=== PATIENT | female | born 1990 | race Caucasian/White ===

== ENCOUNTER 2016-08-29 07:56 | Emergency (ER) | payer OTHER ==
[2016-08-29 09:19] LABS: Urine Bacteria Absent (Absent); Urine Bilirubin Negative (Negative); Urine Glucose Negative (Negative); Urine Nitrite Negative (Negative)
[2016-08-29 09:50] LABS: Hematocrit 39 % (35-47); Hemoglobin 12.6 g/dl (12.0-16.0); Mean Corpuscular HGB Conc 32 g/dl (31-36); Mean Corpuscular Hemoglobin 27 pg (27-31); Mean Corpuscular Volume 83 fL (80-97); Mean Platelet Volume 9 um3 (7.4-10.4); Red Blood Count 4.73 10^6/ul (4.0-5.4); Red Cell Distribution Width 16 % (10.5-15); White Blood Count 7.8 10^3/ul (3.5-10.8)
[2016-08-29 10:10] LABS: ALT 15 U/L (7-52); AST 15 U/L (13-39); Albumin 4.3 g/dL (3.2-5.2); Alkaline Phosphatase 72 U/L (34-104); Anion Gap 8 mmol/L (2-11); BUN/Creatinine Ratio 20.5 (8-20); Blood Urea Nitrogen 15 mg/dL (6-24); C Reactive Protein 5.71 mg/L (< 5.00); CO2 Carbon Dioxide 20 mmol/L (22-32); Calcium 9.2 mg/dL (8.6-10.3); Chloride 108 mmol/L (101-111); EGFR African American 124.9 (>60); EGFR Non-African American 97.1 (>60); Globulin 2.6 g/dL (2-4); Glucose 86 mg/dL (70-100); Lipase 18 U/L (11.0-82.0); Sodium 136 mmol/L (133-145); Total Protein 6.9 g/dL (6.4-8.9)
--- NOTE | 2016-08-29 11:43 | RAD ---
Indication: 2 months LEFT adnexal region pain. Comparison: No relevant prior exams available on the [facility] PACS. Technique: Transvaginal pelvic ultrasound. Report: 8.8 x 4.3 x 5.1 cm anteverted uterus is heterogeneous in echotexture which may reflect presence of small uterine fibroids. No discrete measurable uterine lesions evident. 4.2 mm endometrium. Trace fluid noted in the endometrial cavity and endocervical canal. Trace free fluid noted in the cul-de-sac. 4.5 x 3.1 x 3.0 cm RIGHT ovary with documented vascular flow is remarkable for a unilocular 3.0 x 2.3 x 2.5 cm cyst without complex features consistent with a follicular cyst. 3.3 x 2.5 x 2.6 cm LEFT ovary with documented vascular flow is remarkable for small follicles only. No extra ovarian adnexal region lesions evident. IMPRESSION: 1. Heterogeneous echotexture of the uterus which may reflect small fibroids. No abnormal cystic spaces evident to favor adenomyosis. 2. Normal thickness endometrium with small volume of fluid in the endometrial cavity and endocervical canal. 3. Small follicular cyst of the RIGHT ovary.
[2016-08-29 12:33] VITALS: BP 104/72
--- NOTE | 2016-09-01 07:16 | ED ---
hector Hall Timothy, scribed for Tai Ray MD on 08/29/16 at 0848 . Abdominal Pain/Female - HPI Summary HPI Summary: Lluvia Gunn is a 26 yo female presenting to [facility] with 7/10 LLQ abd pain since 08/27/16. She has not had her menstrual period in 2 months and has a Hx of possible ectopic and polycystic ovarian disease. She stsates she is feeling lethargic, and is nauseous without vomiting. She stsates that she has taken multiple tests, all negative. She denies any vaginal bleeding or discharge, since a period of spotting July 24, her period usually ends on the of the month. She denies any sweats or chills, and states she might have lowgrade, subjective fever at night. She is sexually active, but denies new partners. She has had an appendectomy. Her MHx includes migraine, GERD, peptic ulcer, placental separation at 15 weeks this , ectopic , possible polycystic ovarian disease, arthritis right knee, hay fever, PTSD, depression, anxiety, tobacco use. Her [facility] REMOVER varies between Dr. Cruz and Dr. Roblero. - History of Current Complaint Chief Complaint: EDAbdPain Stated Complaint: PELVIC PAIN Time Seen by Provider: 08/29/16 08:43 Hx Obtained From: Patient Hx Last Menstrual Period: 2 months ago Onset/Duration: Gradual Onset, Lasting Days, Still Present Timing: Constant Severity Initially: Moderate Severity Currently: Moderate Pain Intensity: 7 Pain Scale Used: 0-10 Numeric Location: Discrete At: LLQ Radiates: No Associated Signs and Symptoms: Positive: Fever - lowgrade, subjective, Nausea. Negative: Urinary Symptoms Allergies/Adverse Reactions: Allergies Allergy/AdvReac Type Severity Reaction Status Date / Time contrast dye Allergy Intermediate hives, Uncoded 06/26/15 19:48 rash, sneezing PMH/Surg Hx/FS Hx/Imm Hx Cardiovascular History: Denies: Other Cardiovascular Problems/Disorders GI History: Reports: Hx Gastroesophageal Reflux Disease, Hx Ulcer Denies: Other GI Disorders Musculoskeletal History: Reports: Hx Arthritis - RIGHT KNEE Sensory History: Reports: Hx Contacts or Glasses - CONTACTS Denies: Hx Hearing Aid Opthamlomology History: Reports: Hx Contacts or Glasses - CONTACTS Neurological History: Reports: Hx Headaches - 2-3 X PER WEEK, Hx Migraine - INFREQUENT Psychiatric History: Reports: Hx Anxiety, Hx Depression, Hx Post Traumatic Stress Disorder Denies: Hx Eating Disorder, Hx of Violent Episodes Against Others - Surgical History Surgery Procedure, Year, and Place: RIGHT KNEE X2, 2009, 2011, [place] Hx Anesthesia Reactions: No Infectious Disease History: Denies: Traveled Outside the [place] in Last 30 Days - Family History Known Family History: Positive: Hypertension, Diabetes, Other - anxiety, depression, stroke Negative: Cardiac Disease - Social History Alcohol Use: Occasionally Substance Use Type: Reports: None Smoking Status (MU): Light Every Day Tobacco Smoker Type: Cigarettes Amount Used/How Often: 1/2 PPD Length of Time of Smoking/Using Tobacco: 9 years Have You Smoked in the Last Year: Yes Review of Systems Positive: Fever - lowgrade, subjective. Negative: Chills Eyes: Negative Negative: Erythema ENT: Negative Negative: Sore Throat Cardiovascular: Negative Negative: Palpitations, Chest Pain Respiratory: Negative Negative: Shortness Of Breath, Cough Positive: Abdominal Pain. Negative: Vomiting, Nausea Genitourinary: Negative Negative: dysuria, hematuria Musculoskeletal: Negative Negative: Edema - legs Skin: Negative Negative: Rash Neurological: Negative - no dizziness Psychological: Normal All Other Systems Reviewed And Are Negative: Yes Physical Exam - Summary Physical Exam Summary: Constitutional: Well-developed, Well-nourished, Alert. (-) Distressed Skin: Warm, Dry HENT: Normocephalic; Atraumatic Eyes: Conjunctiva normal Neck: Musculoskeletal ROM normal neck. (-) JVD, (-) Stridor, (-) Tracheal deviation Cardio: Rhythm regular, rate normal, Heart sounds normal; Intact distal pulses; The pedal pulses are 2+ and symmetric. Radial pulses are 2+ and symmetric. (-) Murmur Pulmonary/Chest wall: Effort normal. (-) Respiratory distress, (-) Wheezes, (-) Rales Abd: Soft, Pt points to left lower quadrant as source of pain, but there is no tenderness upon exam, (-) Distension, (-) Guarding, (-) Rebound Musculoskeletal: (-) Edema Lymph: (-) Cervical adenopathy Neuro: Alert, Oriented x3 Psych: Mood and affect Normal Triage Information Reviewed: Yes Vital Signs On Initial Exam: Initial Vitals Temp Pulse Resp BP Pulse Ox 98 F 87 17 117/78 100 08/29/16 08:32 08/29/16 08:32 08/29/16 08:32 08/29/16 08:32 08/29/16 08:32 Vital Signs Reviewed: Yes Diagnostics - Vital Signs Vital Signs Temp Pulse Resp BP Pulse Ox 08/29/16 08:32 98 F 87 17 117/78 100 - Laboratory Result Diagrams: 08/29/16 09:35 08/29/16 09:35 Lab Statement: Any lab studies that have been ordered have been reviewed, and results considered in the medical decision making process. - Ultrasound No standard instances Ultrasound Interpretation: Positive (See Comments) - IMPRESSION: 1. Heterogeneous echotexture of the uterus which may reflect small fibroids. No abnormal cystic spaces evident to favor adenomyosis. 2. Normal thickness endometrium with small volume of fluid in the endometrial cavity and endocervical canal. 3. Small follicular cyst of the RIGHT ovary. Ultrasound Interpretation Completed By: Radiologist - transvaginal US Re-Evaluation - Re-Evaluation First Eval Re-Evaluation Time: 14:35 Change: Improved Comment: Abd nontender. Pt is agreeable to be discharged. Abdominal Pain Fem Course/Dx - Course Course Of Treatment: Lluvia Gunn is a 26 yo female presenting to [facility] with 7/ 10 LLQ abd pain since 08/27/16 with a Hx of ectopic and polycystic ovarian disease, with her LNMP 2 months ago. Her transvaginal US suggests. 1. Heterogeneous echotexture of the uterus which may reflect small fibroids. No abnormal. cystic spaces evident to favor adenomyosis. 2. Normal thickness endometrium with small volume of fluid in the endometrial cavity and. endocervical canal. 3. Small follicular cyst of the RIGHT ovary. After clinical examination and review of her lab and imaging studies, she will be discharged home with UTI and right ovarian cyst with appropriate instructions, - Diagnoses Differential Diagnosis: Positive: Ectopic Provider Diagnoses: UTI (urinary tract infection), Right ovarian cyst Discharge - Discharge Plan Condition: Stable Disposition: HOME Prescriptions: Sulfamethox/Trimethoprim DS* [Bactrim DS 800/160 TAB*] 1 tab PO BID #20 tab Patient Education Materials: Urinary Tract Infection in Women (ED), Ovarian Cyst (ED) Referrals: Sailaja Herndon NP [Primary Care Provider] - Juanito Roblero MD [Medical Doctor] - 2 Days Additional Instructions: Please follow up with Dr. Roblero regarding your visit to the emergency department today. Return to the emergency department with any new or recurring symptoms. The documentation as recorded by the hector alfaro Timothy accurately reflects the service I personally performed and the decisions made by me, Tai Ray MD.
--- NOTE | 2016-09-01 08:59 | PN ---
Progress Note - Progress Note Note: urine culture obtained. grew 50-75,000 of E. Coli. Since patient was complaining of symptoms was placed on bactrim at discharge. Bacteria is susceptible. No changes needed at this time.
== END 2016-08-29 15:10 | disposition home or self-care (01) ==
LOC: ED 07:56
DX: N39.0 Urinary tract infection, site not specified (principal); N83.201 Unspecified ovarian cyst, right side; R10.32 Left lower quadrant pain; R50.9 Fever, unspecified; F17.210 Nicotine dependence, cigarettes, uncomplicated
CPT/HCPCS: 36415; 76830; 80053; 81003; 81015; 83605; 83690; 84702; 85025; 86140; 87077; 87086; 87186; 99283

== ENCOUNTER → 2017-08-30 | Day surgery (SDC) | payer BC ==
[~2017-08-30] MED LIST: Buffered Lidocaine 0.9% SYRIN* 5 ML/SYR SYRINGE INTRADERM ONE; Buffered Lidocaine 0.9% SYRIN* 5 ML/SYR SYRINGE ONE; Bupivacaine 0.5% PF 10 ML VIAL INJ ONE; Dexamethasone IV* 4 MG/ML 1 ML (4 MG) ONE; Famotidine IV* 10 MG/ML 2 ML (20 mg) IV ONE; Famotidine IV* 10 MG/ML 2 ML (20 mg) ONE; Ketorolac INJ* 30 MG/ML 1 ML VIAL ONE; Lidocain 1% EPI 1:100,000 * 30 ML MDV ONE; Lidocaine 2% PF * 5 ML VIAL ONE; Midazolam* 1 MG/ML 5 ML VIAL (5 MG) ONE; Naloxone* 0.4 MG/ML 1 ML VIAL IV PRN; Ondansetron ODT TAB* 4 MG PO PRN; Propofol* 10 MG/ML 20 ML BTL IV PUSH ONE; ceFAZolin 2 GM PREMIX (*) 2 GM/50 ML BAG IVPB ONE; fentaNYL* 50 MCG/ML 2 ML VIAL (100 MCG VIAL) ONE; fentaNYL* 50 MCG/ML 5 ML VIAL (250 MCG VIAL) ONE; oxyCODONE/Acetamin 5/325 MG* TAB PO PRN
[2017-08-30] MEDS: fentaNYL* 50 MCG/ML 2 ML VIAL (100 MCG VIAL) IV PRN ×2 (15:28→15:45)
[2017-08-30 16:09] VITALS: BP 117/82
--- NOTE | 2017-08-31 06:01 | OP ---
CC: [facility] * DATE OF OPERATION: 08/30/17 - SDS DATE OF : 89 SURGEON: Nilton To MD AIR ANALYSIS ENGINEERING TECHNICIAN: None. ANESTHESIOLOGIST: Laz Cantrell MD ANESTHESIA: General anesthetic, local infiltration. PRE-OP DIAGNOSIS: Umbilical hernia. POST-OP DIAGNOSIS: Umbilical hernia. OPERATIVE PROCEDURE: Umbilical hernia repair with mesh. DESCRIPTION OF PROCEDURE: The patient was supine on the operative table. After adequate general anesthetic, compression stockings, Cary Hugger warmer, and intravenous antibiotics, the abdomen was prepped with antiseptic, draped in a sterile fashion. Local infiltrative anesthesia was administered. A supraumbilical curvilinear incision was created approximately 2 cm in length. Dissection was carried down to the base of the umbilicus. There were actually 2 defects; about 0.5-cm defect at the base of the umbilicus and then about a 1- cm defect just superior to this. They were by about a centimeter and a half or so, and everything was freed up in the area and the preperitoneal fat was reduced and the preperitoneal plane was developed. A 4.5-cm underlay patch was utilized. This was sutured down underneath the inferior edge of the inferior defect and above the superior edge of the superior defect, and the mesh was also tacked to the lateral aspect of the closure, and both defects were closed transversely using 0 Vicryl suture. This created a nice closure. The umbilical fascia was tacked back down. The adipose closed with 3-0 Vicryl and skin with 5-0 Vicryl followed by Steri- Strips. She tolerated the procedure well, was awakened, and brought to Recovery in good condition. No complications. No drains. No pathologic specimens. Sponge and instrument counts correct. Estimated blood loss 10 mL. [id number]/[facility] #: [id number] [facility]US[facility]
== END | disposition home or self-care (01) ==
LOC: OR 11:51
PROVIDERS: ATTEND Surgery
DX: K42.9 Umbilical hernia without obstruction or gangrene (principal); F17.210 Nicotine dependence, cigarettes, uncomplicated; F41.8 Other specified anxiety disorders; K21.9 Gastro-esophageal reflux disease without esophagitis
CPT/HCPCS: 81025; C1781; J0690; J1100; J1885; J2250; J2704; J3010

== ENCOUNTER 2019-05-30 09:23 | Emergency (ER) | payer BC ==
[2019-05-30] MEDS ORDERED: NS 0.9% 1000 ML** 1,000 ML IV ONE (09:55)
[2019-05-30] MEDS ORDERED: Metoclopramide IV* 5 MG/ML 2 ML VIAL IV ONE (09:56)
[2019-05-30] MEDS ORDERED: diPHENhydraMINE IV* 50 MG/ML 1 ml VIAL (BENADRYL) IV ONE (09:56)
[2019-05-30] MEDS ORDERED: Ketorolac INJ* 30 MG/ML 1 ML VIAL IV PUSH ONE (09:56)
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
[2019-05-30 12:10] VITALS: BP 114/72
== END 2019-05-30 12:32 | disposition home or self-care (01) ==
LOC: ED 09:23
DX: R51 Headache (principal); M54.2 Cervicalgia; R11.2 Nausea with vomiting, unspecified; R20.0 Anesthesia of skin; F32.9 Major depressive disorder, single episode, unspecified; Z91.041 Radiographic dye allergy status; F17.210 Nicotine dependence, cigarettes, uncomplicated
CPT/HCPCS: 96361; 96374; 96375; 99283; J1200; J1885; J2765